=== PATIENT | female | born 1950 | race Caucasian/White ===

== ENCOUNTER 2017-12-18 11:12 | Outpatient (CLI) | payer MEDICARE, OTHER ==
[2017-12-18 13:15] LABS: #Basophils 0.1 thou/uL (0.0-0.2); #Lymphocytes 2.2 thou/uL (1.20-3.40); #Monocytes 0.4 thou/uL (0.11-0.59); #Neutrophils 4.5 thou/uL (1.40-6.50); %Basophils 0.8 % (0.0-1.0); %Eosinophils 0.1 % (0.0-10.0); %Lymphocytes 30.4 % (21.0-51.0); %Monocytes 5.9 % (0.0-10.0); %Neutrophils 62.7 % (42.0-75.0); Mean Corpuscular Hemoglobin 32.7 pg (27.0-31.0); Mean Platelet Volume 8.9 fL (7.4-10.4); Platelet Count 189 thou/uL (130-400); RBC Distribution Width 12.5 % (11.5-14.5); Red Blood Cell (RBC) Count 4.28 mill/uL (4.20-5.40); White Blood Cell (WBC) Count 7.1 thou/uL (4.8-10.8)
[2017-12-18 13:41] LABS: Anion Gap 13 mmol/L (10-20); BUN (Urea Nitrogen) 15 mg/dL (9.8-20.1); Calc. Creatinine Clearance 0 mL/min (70-130); Calcium 10.7 mg/dL (7.8-10.44); Carbon Dioxide 28 mmol/L (23-31); Chloride 99 mmol/L (98-107); Estimated GFR-MDRD Greater than 90; Glucose 143 mg/dL (80-115); Potassium 3.6 mmol/L (3.5-5.1); Sodium 136 mmol/L (136-145)
--- NOTE | 2017-12-31 22:49 | EKG ---
Test Reason : Blood Pressure : / mmHG Vent. Rate : 069 BPM Atrial Rate : 069 BPM P-R Int : 148 ms QRS Dur : 084 ms QT Int : 382 ms P-R-T Axes : 013 015 027 degrees QTc Int : 409 ms Poor data quality, interpretation may be adversely affected Normal sinus rhythm Nonspecific ST abnormality Abnormal ECG When compared with ECG of 29-JUL-2007 09:34, No significant change was found Confirmed by Evelio GARCIAS ([id number]) on 12/31/2017 10:49:22 PM Referred By: SHANTELLE Confirmed By:Evelio GARCIAS
== END 2017-12-18 11:13 | disposition home or self-care (01) ==
LOC: LABBT 11:12
PROVIDERS: ATTEND Surgery
DX: Z01.818 Encounter for other preprocedural examination (principal); K64.9 Unspecified hemorrhoids
CPT/HCPCS: 80048; 85025; 93005; 93010

== ENCOUNTER 2017-12-25 09:08 | Day surgery (SDC) | payer MEDICARE ==
[2017-12-18 11:48] VITALS: BMI 29.8
[2017-12-25] MEDS ORDERED: cefOXitin 2 GM, Syringe 1 ML in Sterile Water 10 ML SLOW IVP SCH (09:30)
[2017-12-25] MEDS ORDERED: Midazolam HCl 2 mg/2 ml Vial ONE ×2 (10:03→11:10)
[2017-12-25] MEDS ORDERED: Fentanyl 100 MCG/2 ML VIAL ONE ×4 (11:10→12:58)
[2017-12-25] MEDS ORDERED: Bupivacaine/Epinephrine 0.25% 30 ML VIAL ONE (11:18)
[2017-12-25] MEDS ORDERED: Lidocaine 2% Jelly 5 ML TUBE ONE (11:18)
[2017-12-25] MEDS ORDERED: HYDROmorphone 0.5 MG/0.5 ML SYRINGE ONE (12:23)
[2017-12-25] MEDS ORDERED: Promethazine HCl 25 MG/ML VIAL ONE (12:30)
[2017-12-25] MEDS ORDERED: HYDROcodone/Acetaminophen 5/325 mg Tablet ONE (14:47)
[2017-12-25] MEDS ORDERED: Lidocaine 1% PF 5 ML VIAL ONE (15:44)
[2017-12-25] MEDS ORDERED: Dexamethasone 20 MG/5 ML VIAL ONE (15:44)
[2017-12-25] MEDS ORDERED: Ondansetron HCl/PF 4 MG/2 ML Vial ONE (15:44)
[2017-12-25] MEDS ORDERED: Propofol 200 MG/20 ML VIAL ONE (15:44)
--- NOTE | 2017-12-26 08:33 | OP ---
DATE OF PROCEDURE: 12/25/2017 PREOPERATIVE DIAGNOSES: Prolapsing internal hemorrhoids. POSTOPERATIVE DIAGNOSES: Prolapsing internal hemorrhoids. PROCEDURE: PPH stapled hemorrhoidectomy. SURGEON: Dr. David Savage ANESTHESIA: General. ESTIMATED BLOOD LOSS: Minimal. COMPLICATIONS: None. SPECIMEN: Hemorrhoids. PROCEDURE IN DETAIL: The patient had undergone preoperative bowel prep. She was taken the operating room, placed supine on the operating table. After general anesthetic was obtained, she was placed i n the prone position. Her anal perineum is taped open for exposure and prepped and draped in a steri le fashion. Exam under anesthesia reveals no obvious significant anal stenosis or anal canal mass. The obturator and sphincter protector was placed and sewn into place to protect the sphincter muscles . A pursestring of Prolene sutures placed 2 cm above the dentate line. The PPH stapler was opened t o its fullest extent and the anvil was placed above the pursestring. The pursestring was tied down l oosely. The ends of the string were brought through the stapler. The stapler is tightened down into the green zone. Exam of the vaginal canal reveals no obvious involvement of the posterior vagina wi th the staple line. The stapler is tightened into the green zone and fired. There was a good ring o f tissue performed. A stapler anteriorly on the staple line is oversewn using Vicryl suture. No galindo oing bleeding. Gelfoam and lidocaine jelly packed in the anal canal. The obturator was removed. Th e mild to moderate redundant skin externally is reduced and seems to be tightened up by the stapling. The patient en route to recovery in stable condition. All instrument counts, needle counts, lap co unts are correct.
== END 2017-12-25 16:50 | disposition home or self-care (01) ==
LOC: SDC 09:08
PROVIDERS: ATTEND Surgery
PROC: 06BY3ZC Excision of Hemorrhoidal Plexus, Percutaneous Approach (ICD-10-PCS; principal; 2017-12-25)
DX: K64.8 Other hemorrhoids (principal); E78.5 Hyperlipidemia, unspecified; G47.30 Sleep apnea, unspecified; E03.9 Hypothyroidism, unspecified; F32.9 Major depressive disorder, single episode, unspecified; Z99.89 Dependence on other enabling machines and devices; Z79.890 Hormone replacement therapy; Z79.899 Other long term (current) drug therapy
CPT/HCPCS: 88304; 96374; A4216; J0694; J1100; J1170; J2001; J2250; J2405; J2550; J2704; J3010

== ENCOUNTER 2021-07-06 10:21 | Outpatient (CLI) | payer MEDICARE, OTHER | END 2021-07-06 10:22 | disposition home or self-care (01) | LOC: TBSIIMAG 10:21 | PROVIDERS: ATTEND Orthopaedic Surgery | DX: M23.91 Unspecified internal derangement of right knee (principal); S83.241A Other tear of medial meniscus, current injury, right knee, initial encounter; M65.9 Synovitis and tenosynovitis, unspecified; M25.461 Effusion, right knee; M71.21 Synovial cyst of popliteal space [Baker], right knee ==